=== PATIENT | male | born 1930 ===

== ENCOUNTER 2017-09-08 17:29 | Inpatient (IN) | payer MEDICAID, MEDICARE ==
[~2017-09-08] VITALS: Ht 167.6 cm; Wt 90.3 kg
--- NOTE | 2017-09-08 18:30 | NUR ---
PATIENT WAS RECEIVED FROM [facility], TRANSPORTED BY [facility], ACCOMPANIED BY 2 EMT STAFF ON A GURNEY WITH SON. NO SOB, DISTRESS OR COMPLAINTS OF PAIN AT THIS TIME. ALL NEEDS WERE ATTENDED AND ANTICIPATED, PATIENT AND SON WERE ORIENTED TO HOSPITAL UNIT. CALL LIGHT PLACED WITHIN REACH. ENCOURAGED PATIENT TO USE CALL LIGHT WHENEVER ASSISTANCE IS NEEDED. REPORT RECEIVED FROM ASH LEMUS AT [place]. PATIENT KEPT CLEAN DRY AND COMFORTABLE. RECONCILE MEDICATIONS DONE. CALLED DR. DAVENPORT AND NOTIFIED OF THE ADMISSION. WILL ENDORSE TO MOVEMENT EDUCATION SPECIALIST NURSE.
[2017-09-08] MEDS ORDERED: DILT30TA2 PO (19:01)
[2017-09-08] MEDS ORDERED: TAMS0.4C34 PO (19:08)
[2017-09-08] MEDS ORDERED: FAMO-132 PO (19:08)
[2017-09-08] MEDS ORDERED: MAG-55 PO (19:08)
[2017-09-08] MEDS ORDERED: MAGN400O6 PO (19:08)
[2017-09-08] MEDS ORDERED: ZOLP5TAB2 PO (19:08)
[2017-09-08] MEDS ORDERED: LORA1TAB PO (19:08)
--- NOTE | 2017-09-08 19:30 | NUR ---
Received patient in bed asleep. Alert and easily arousable. No c/o pain and discomfort. No acute distress noted. No labored breathing noted. No SOB. Kept clean and dry. All needs attended to promptly. Bed in low position. Call light within reach. Will continue to monitor.
[2017-09-08] MEDS ORDERED: LOSA1TAB36 PO (19:41)
[2017-09-08 20:00] VITALS: BP 145/86
[2017-09-08] MEDS ORDERED: INSULIN REGULAR, HUMAN 300 UNITS/3 ML VIAL SQ PRN ×2 (20:00→20:15)
[2017-09-08] MEDS ORDERED: ZOLPIDEM 5 MG TABLET PO PRN (20:00)
[2017-09-08] MEDS ORDERED: MAGNESIUM HYDROXIDE 30 ML LIQUID UDC PO SCH (20:00)
[2017-09-08] MEDS ORDERED: DEXTROSE 50% 50 ML DISP.SYRIN IV PRN ×2 (20:00→20:15)
[2017-09-08] MEDS ORDERED: INSULIN REGULAR, HUMAN 300 UNIT/3 ML VIAL SQ PRN (20:00)
--- NOTE | 2017-09-08 20:00 | NUR ---
Son and [id number] at bedside at this time. Patient is awake and verbally responsive. Welsh speaking only. Son and [id number] provided me with history for patient.
[2017-09-08] MEDS ORDERED: BLOOD SUGAR DIAGNOSTIC 1 EACH STRIP VI SCH (21:00)
[2017-09-08] MEDS: TAMSULOSIN HCL 0.4 MG CAP.SR.24H PO SCH (21:08)
[2017-09-08] MEDS: DILTIAZEM HCL 30 MG TABLET PO SCH (21:08)
[2017-09-08] MEDS: FAMOTIDINE 20 MG TABLET PO SCH (21:08)
--- NOTE | 2017-09-08 21:08 | NUR ---
Family still at bedside. 2100 PO medications given to patient. Blood sugar check done with result of 135. Family made aware and refused 2 units of insulin. Per family, patient does not need insulin and only started Blood sugar checks while at [place] and never needed it before. Explained risks and benefits to family and still strongly refused insulin. Patient is in no acute distress. No s/s of hyperglycemia. All needs attended to promptly. Call light within reach. Will continue to monitor.
[2017-09-08] MEDS: BLOOD SUGAR DIAGNOSTIC 1 EACH STRIP VI SCH (21:20)
--- NOTE | 2017-09-09 06:17 | NUR ---
Patient slept comfortably throughout the night. No c/o pain and discomfort. No acute distress. No SOB. Kept clean and dry. Assisted to bathroom x1 with 2 person assist last night. Pt. also used bedside commode with assistance. All needs attended to promptly. Call light within reach. Will continue to monitor.
[2017-09-09] MEDS: BLOOD SUGAR DIAGNOSTIC 1 EACH STRIP VI SCH ×4 (06:32→20:50)
[2017-09-09 07:05] VITALS: BP 135/89
[2017-09-09] MEDS: DILTIAZEM HCL 30 MG TABLET PO SCH ×4 (09:13→20:52)
[2017-09-09] MEDS: FAMOTIDINE 20 MG TABLET PO SCH ×2 (09:13→19:58)
[2017-09-09] MEDS ORDERED: MAG HYDROX/AL HYDROX/SIMETH 30 ML LIQUID UDC PO PRN (16:00)
--- NOTE | 2017-09-09 19:45 | NUR ---
Received pt sitting on a wheelchair. Family at bedside during this time. No acute distress noted. No complaints of pain or discomfort. No SOB noted. Kept clean, dry and comfortable. Call light placed within reach. All needs anticipated. Will continue to monitor.
[2017-09-09] MEDS: TAMSULOSIN HCL 0.4 MG CAP.SR.24H PO SCH (19:59)
[2017-09-09] MEDS ORDERED: MAGNESIUM HYDROXIDE 30 ML LIQUID UDC PO PRN (21:00)
--- NOTE | 2017-09-09 21:00 | NUR ---
Family still at bedside. Due meds given as ordered and well tolerated. Accu check done, 161 mg/dl. Family refused insulin coverage, stated that the pt does not need insulin. Explained risk and benefits, family still refused. No signs/symptoms of hyperglycemia noted. Call light within reach. Safety and fall precautions observed and maintained. Bed alarm on. Will continue to monitor.
[2017-09-09 21:05] VITALS: BP 157/92
--- NOTE | 2017-09-10 05:33 | NUR ---
Pt slept well. No acute distress noted. Denies pain. Ambulates to the bathroom with assistance. Frequently checked for safety. Bed alarm on. Call light within reach. All needs anticipated.
[2017-09-10] MEDS: BLOOD SUGAR DIAGNOSTIC 1 EACH STRIP VI SCH ×4 (06:45→20:56)
--- NOTE | 2017-09-10 08:00 | NUR ---
Patient awake, alert, verbally responsive, not in any form of acute distress. He denies any pain or discomfort at this time. Noted getting out of bed unassisted. Call light placed within reach. Reminded to use call light for assistance. Bed alarm on. Attended to his needs.
[2017-09-10 08:43] VITALS: BP 133/73
[2017-09-10] MEDS: DILTIAZEM HCL 30 MG TABLET PO SCH ×4 (09:00→20:40)
[2017-09-10] MEDS: FAMOTIDINE 20 MG TABLET PO SCH ×2 (09:00→20:40)
--- NOTE | 2017-09-10 09:47 | NUR ---
Called for [employer] sign language interpreter [id number] help with medication administration but patient refused. Explained risks and benefits but still patient refused and that per sign language interpreter patient sounds confused. Called son Real but didn't supervisor opening and picking so left a message. Awaiting for his call back.
--- NOTE | 2017-09-10 11:50 | NUR ---
Patient refused blood sugar check. Called son to convince patient but patient still refused.
--- NOTE | 2017-09-10 13:20 | NUR ---
Dr. Duran came to see patient. Notified MD regarding patient's refusal of medications and blood sugar check as well as family refusing insulin coverage. MD stated will check into that, no new order at this time. Informed him that patient is confused, tries to get out of bed unassisted and has tendency to be combative but didn't order anything.
--- NOTE | 2017-09-10 15:10 | NUR ---
INTERDISCIPLINARY TEAM CONFERENCE
--- NOTE | 2017-09-10 19:54 | NUR ---
Received patient sitting up in bed eating. Sitter at bed side and assisting patient. Alert and verbally responsive. Citizen Of [place] speaking. No c/o pain and discomfort at this time. No facial grimacing. No acute distress. No SOB. Kept clean and dry. All needs attended to promptly. Call light within reach. Will continue to monitor.
[2017-09-10 20:16] VITALS: BP 142/95
[2017-09-10] MEDS: TAMSULOSIN HCL 0.4 MG CAP.SR.24H PO SCH (20:40)
[2017-09-10] MEDS: LORAZEPAM 1 MG TABLET PO PRN (20:40)
--- NOTE | 2017-09-11 06:09 | NUR ---
Patient slept comfortably throughout the night. Sitter at bedside at all times. Still noted with episodes of trying to get OOB intermittently throughout the night. Redirected patient. No c/o pain and discomfort. No acute distress. No SOB. Kept clean and dry. All needs attended to promptly. Call light within' reach. Will continue to monitor.
[2017-09-11] MEDS: BLOOD SUGAR DIAGNOSTIC 1 EACH STRIP VI SCH ×4 (06:40→20:55)
--- NOTE | 2017-09-11 07:05 | NUR ---
Received patient asleep, lying on bed with head of bed elevated above 15 degree angle with no SOB, facial grimace or moaning, easily aroused. 1:1 sitter at bedside for close monitoring and safety. Call light within reach. Will continue to monitor.
[2017-09-11 07:29] LABS: BASOPHILS # (AUTO) 0.1 K/uL (0.0-8.0); BASOPHILS % (AUTO) 0.9 % (0.0-2.0); EOSINOPHILS # (AUTO) 0.3 K/uL (0.0-0.7); EOSINOPHILS % (AUTO) 3.6 % (0.0-7.0); HEMOGLOBIN 13.1 g/dL (12.5-16.3); LYMPHOCYTES # (AUTO) 1.8 K/uL (20.0-40.0); LYMPHOCYTES % (AUTO) 24.7 % (20.5-51.5); MEAN CORPUSCULAR HEMOGLOBIN 30.9 uug (23.8-33.4); MEAN CORPUSCULAR HGB CONC 34 g/dL (32.5-36.3); MEAN CORPUSCULAR VOLUME 89.8 fL (73.0-96.2); MONOCYTES # (AUTO) 0.6 K/uL (2.0-10.0); MONOCYTES % (AUTO) 7.8 % (0.0-11.0); NEUTROPHILS # (AUTO) 4.7 K/uL (1.8-8.9); PLATELET COUNT (AUTO) 281 K/uL (152-348); RED BLOOD CELL COUNT(AUTO) 4.24 MIL/uL (4.06-5.63); WHITE BLOOD COUNT (AUTO) 7.5 K/uL (3.6-10.2)
[2017-09-11 07:41] LABS: CARBON DIOXIDE 31 mmol/L (21-32); CHLORIDE 104 mmol/L (98-107); CREATININE 1.3 mg/dL (0.6-1.3); GLUCOSE 102 mg/dL (74-106); POTASSIUM 3.8 mmol/L (3.5-5.1); UREA NITROGEN, BLOOD 24 mg/dL (7-18)
[2017-09-11 08:00] VITALS: BP 157/91
[2017-09-11] MEDS: FAMOTIDINE 20 MG TABLET PO SCH ×2 (08:41→20:54)
[2017-09-11] MEDS: LOSARTAN POTASSIUM 50 MG TABLET PO SCH (08:42)
[2017-09-11] MEDS: DILTIAZEM HCL 30 MG TABLET PO SCH ×4 (08:42→20:54)
--- NOTE | 2017-09-11 11:40 | NUR ---
PATIENT IS SCHEDULED FOR ACCU CHECK BEFORE LUNCH ORDERED. PATIENT AWAKE, SITTING ON HIS CHAIR WITH HIS 1:1 SITTER AT BEDSIDE. PATIENT REFUSED TO DO ACCU CHECK, CALLED SHEA, PATIENT'S SON, AND NOTIFIED SON SPOKE WITH THE PATIENT ON THE PHONE STILL PATIENT REFUSED. SON ON THE PHONE NOTIFIED THAT PATIENT IS REFUSING ACCU CHECK.
--- NOTE | 2017-09-11 20:00 | NUR ---
Received patient sitting up in bed. Alert and verbally responsive. Sierra Leonean speaking. Sitter at bedside. Denies any pain and discomfort. No acute distress. No SOB. Assisted to the bathroom when needed. Kept clean and dry. All needs attended to promptly. Call light within reach. Will continue to monitor.
[2017-09-11 20:30] VITALS: BP 146/95
[2017-09-11] MEDS: TAMSULOSIN HCL 0.4 MG CAP.SR.24H PO SCH (20:54)
--- NOTE | 2017-09-12 06:30 | NUR ---
Patient slept comfortably throughout the night. No c/o pain and discomfort. No acute distress. No SOB. Kept clean and dry. Accucheck done with BS of 114. No coverage needed. Sister at bedside. All needs attended to promptly. Call light within reach. Will continue to monitor.
[2017-09-12] MEDS: BLOOD SUGAR DIAGNOSTIC 1 EACH STRIP VI SCH ×4 (06:42→21:00)
[2017-09-12] MEDS: DILTIAZEM HCL 30 MG TABLET PO SCH ×4 (08:37→21:01)
[2017-09-12] MEDS: LOSARTAN POTASSIUM 50 MG TABLET PO SCH (08:37)
[2017-09-12] MEDS: FAMOTIDINE 20 MG TABLET PO SCH ×2 (08:38→21:01)
--- NOTE | 2017-09-12 16:59 | NUR ---
NURSING NOTE REFUSING TO HAVE HIS BLOOD SUGAR TAKEN BEFORE DINNER. ALSO REFUSE THE LUNCH ACCU CHECK WELL. ALSO REFUSING TO TAKE HIS MEDS. THROUGHOUT THE DAY
--- NOTE | 2017-09-12 17:47 | NUR ---
DAILY NOTE COMBATIVE WITH CARE FIGHTING WITH MANAGER CHILD
--- NOTE | 2017-09-12 19:45 | NUR ---
Received pt in bed, awake and watching television. Sitter at bedside. No acute distress noted. Denies pain or discomfort at this time. All safety measures and fall precautions maintained. Call light within reach. Will continue to monitor.
[2017-09-12] MEDS: TAMSULOSIN HCL 0.4 MG CAP.SR.24H PO SCH (21:01)
--- NOTE | 2017-09-12 21:04 | NUR ---
Blood sugar taken, noted to be 139. Pt and family refused insulin coverage. Explained risks and benefits. Offered x 3. Both family members stated "insulin is too strong. I want him to only take the pills for blood sugar." No acute distress noted. All due medications this evening given as ordered. Well tolerated. Will continue to monitor.
[2017-09-12] MEDS: LORAZEPAM 1 MG TABLET PO PRN (22:05)
--- NOTE | 2017-09-13 06:30 | NUR ---
Pt slept comfortably throughout the evening. No acute distress noted. Denies pain or discomfort. All due medications given as ordered by MD. Well tolerated. Kept clean and dry. All needs met promptly. All safety measures and fall precautions maintained. Call light within reach. Will continue to monitor. Addendum: 09/13/17 at 0630 by Graham Drew RN Sitter at bedside.
--- NOTE | 2017-09-13 07:00 | NUR ---
Received patient asleep, lying on bed on a semi- melchor's position with no SOB distress or discomforts. Easily aroused. With 1:1 sitter at bedside. call light within reach. Will continue to monitor.
[2017-09-13] MEDS: BLOOD SUGAR DIAGNOSTIC 1 EACH STRIP VI SCH ×4 (07:01→20:15)
[2017-09-13 08:00] VITALS: BP 145/89
[2017-09-13] MEDS: LOSARTAN POTASSIUM 50 MG TABLET PO SCH (09:47)
[2017-09-13] MEDS: DILTIAZEM HCL 30 MG TABLET PO SCH ×4 (09:47→20:15)
[2017-09-13] MEDS: FAMOTIDINE 20 MG TABLET PO SCH ×2 (09:48→20:15)
--- NOTE | 2017-09-13 11:30 | NUR ---
BLOOD SUGAR WAS TAKEN WITH RESULT OF 247 MG/DL. CALLED PATIENT'S SON AND INFORMED OF THE BLOOD SUGAR LEVEL PER PATIENT'S SON IT IS OKAY TO ADMINISTER THE 6 UNITS OF INSULIN PER SLIDING SCALE ORDER.
[2017-09-13] MEDS: INSULIN REGULAR, HUMAN 300 UNIT/3 ML VIAL SQ PRN ×2 (11:51→20:15)
--- NOTE | 2017-09-13 13:24 | NUR ---
PATIENT NOTED ASLEEP, LYING ON BED WITH HIS 1:1 SITTER AT BEDSIDE. EASILY AROUSED WITH NO SOB, DISTRESS OR ANY DISCOMFORTS AT THIS TIME. CALL LIGHT PLACED WITH REACH. WILL CONTINUE TO MONITOR.
--- NOTE | 2017-09-13 16:19 | NUR ---
PATIENT AWAKE, ALERT SITTING ON THE CHAIR AT THE BEDSIDE WITH NO SOB, DISTRESS OR DISCOMFORTS NOTED. SCHEDULED FOR ACCU CHECK BUT PATIENT REFUSED. EXPLAINED RISKS AND BENEFITS STILL PATIENT REFUSED. ASSESSED PATIENT, NOTED NO SIGNS AND SYMPTOMS OF HYPOGLYCEMIA OR HYPERGLYCEMIA. TRIED CALLING PATIENT'S SON BUT DID NOT ANSWER. LEFT MESSAGE TO CALL THE HOSPITAL TO INFORM. WILL CONTINUE TO MONITOR.
--- NOTE | 2017-09-13 16:26 | NUR ---
CALLED DR. POLANCO AND INFORMED OF PATIENT'S REFUSAL TO DO BLOOD SUGAR CHECK SCHEDULED FOR 1629.
--- NOTE | 2017-09-13 19:12 | NUR ---
Patient awake, lying on bed with no SOB distress or discomforts at this time with 1:1 sitter at bedside, all needs were attended and anticipated. call light within reach. Will endorse to incoming shift
[2017-09-13 19:44] VITALS: BP 132/84
--- NOTE | 2017-09-13 19:45 | NUR ---
RECEIVED PATIENT AWAKE IN BED WITH VISITOR AT BEDSIDE. PATIENT IS LAO SPEAKING ONLY. PER PATIENTS SON, PATIENT IS A/O X3. PATIENT IS AWARE OF NAME, PLACE AND TIME. PATIENT IS CONVERSING WITH SON. PATIENT DENIES ANY PAIN OR DISCOMFORT. NO RESP. DISTRESS NOTED. VS WNL. ON RA. CALL LIGHT IN REACH. ALL NEEDS ATTENDED. WILL CONTINUE TO MONITOR.
[2017-09-13] MEDS: TAMSULOSIN HCL 0.4 MG CAP.SR.24H PO SCH (20:15)
--- NOTE | 2017-09-13 20:17 | NUR ---
PATIENT AWAKE IN BED, SON AT BEDSIDE. PATIENT COOPERATIVE WITH HS ACC-CHECK AND TAKING HS MEDICATIONS. BS 134. NO INSULIN GIVEN TONIGHT. PATIENT DID NOT EAT DINNER. SNACKS AND FOOD OFFERED, BUT PATIENT REFUSED TO EAT AT THIS TIME. HEALTHCARE ADMINISTRATION INTERNSHIP AWARE THAT PATIENT DID NOT RECEIVE ANY INSULIN TONIGHT. BED ALARM ON. CALL LIGHT IN REACH. ALL NEEDS ATTENDED. WILL CONTINUE TO MONITOR.
--- NOTE | 2017-09-14 06:18 | NUR ---
PATIENT ASLEEP IN BED WITH SITTER AT BEDSIDE. PATIENT SLEPT WELL THROUGHOUT THE NIGHT. NO S/S OF PAIN OR DISCOMFORT. NO RESP. DISTRESS NOTED. BED ALARM ON. CALL LIGHT IN REACH. ALL NEEDS ATTENDED. WILL CONTINUE TO MONITOR.
[2017-09-14] MEDS: BLOOD SUGAR DIAGNOSTIC 1 EACH STRIP VI SCH ×4 (06:45→20:38)
--- NOTE | 2017-09-14 07:00 | NUR ---
Received patient asleep, lying on bed on a semi- melchor's position, easily aroused with his 1:1 sitter at bedside with no SOB, distress or any display of discomforts at this time. Call light placed within reach. Will continue to monitor patient.
[2017-09-14 08:23] VITALS: BP 154/83
[2017-09-14] MEDS: FAMOTIDINE 20 MG TABLET PO SCH ×2 (08:46→20:42)
[2017-09-14] MEDS: LOSARTAN POTASSIUM 50 MG TABLET PO SCH (08:46)
[2017-09-14] MEDS: DILTIAZEM HCL 30 MG TABLET PO SCH ×4 (08:46→20:42)
--- NOTE | 2017-09-14 09:59 | NUR ---
Patient noted asleep, lying on his bed on a semi- melchor's position with no SOB, distress or discomforts at this time. Call light within reach. Easily aroused. Will continue to closely monitor.
--- NOTE | 2017-09-14 11:40 | NUR ---
PATIENT AWAKE, LYING ON HIS BED ON A SEMI- GARVIN'S POSITION WITH BED ALARM ON FOR SAFETY. CALL LIGHT WITHIN REACH. PATIENT IS SCHEDULED TO CHECK HIS BLOOD SUGAR, BUT PATIENT BECAME VERY AGGRESSIVE, SAT ON HIS BED, GRABBED HIS WALKER AT HIS BEDSIDE AND LIFTED THE WALKER ABOUT TO HIT THE NURSE. TRIED TO CALM THE PATIENT BUT PATIENT WAS VERY AGGRESSIVE. REFUSED TO DO HIS BLOOD SUGAR CHECK. DR. POLANCO PRESENT AT THE NURSE'S STATION, NOTIFIED OF PATIENT'S REFUSAL TO CHECK HIS BLOOD SUGAR AND HIS BEHAVIOR. DR. POLANCO ORDERED PSYCHIATRIC CONSULT FOR FURTHER EVALUATION OF PATIENT'S BEHAVIOR. ORDERS NOTED AND CARRIED OUT.
--- NOTE | 2017-09-14 12:19 | NUR ---
CALLED PATIENT'S SON, JOSE ESCAMILLA TO INFORM REGARDING THE PSYCHIATRIC CONSULT ORDERED BY DR. POLANCO BUT DID NOT ANSWER THE CALL. LEFT MESSAGE TO CALL BACK THE UNIT.
--- NOTE | 2017-09-14 12:20 | NUR ---
CALLED DR. POWELL (PSYCHIATRIST) REGARDING THE ORDER OF MD SHERRY MCDONOUGH ACKNOWLEDGED THE ORDER.
[2017-09-14] MEDS: LORAZEPAM 1 MG TABLET PO PRN (13:26)
--- NOTE | 2017-09-14 15:26 | NUR ---
PATIENT NOTED AMBULATING WITH PT WITHOUT DIFFICULTY NO SOB OR DISCOMFORTS NOTED AT THIS TIME. WILL CONTINUE TO MONITOR.
--- NOTE | 2017-09-14 16:14 | NUR ---
PATIENT IS SCHEDULED FOR HIS BLOOD SUGAR CHECK, PATIENT REFUSED. EXPLAINED TO PATIENT THE RISKS AND BENEFITS OF THE BLOOD SUGAR CHECK, BUT STILL PATIENT REFUSED. PATIENT STARTED SCREAMING AND "NO! NO!" NO SIGNS AND SYMPTOMS OF HYPOGLYCEMIA OR HYPERGLYCEMIA AT THIS TIME. MD AWARE OF PATIENT'S BEHAVIOR.
--- NOTE | 2017-09-14 17:21 | NUR ---
PATIENT IS SCHEDULED FOR HIS DILTIAZEM BUT PATIENT REFUSED TO HAVE HIS BLOOD PRESSURE CHECK AND TO TAKE THE MEDICATION. EXPLAINED TO PATIENT BUT STILL PATIENT REFUSED. STILL AWAITING FOR PATIENT'S SON CALL BACK. MD MADE AWARE. NO SOB, DISTRESS OR DISPLAY OF ANY DISCOMFORTS AT THIS TIME.
--- NOTE | 2017-09-14 18:24 | NUR ---
PATIENT ASLEEP, LYING ON BED WITH NO SOB, DISTRESS OR DISCOMFORTS. KEPT PATIENT CLEAN AND COMFORTABLE THROUGHOUT THE DAY. EASILY AROUSED. CALL LIGHT PLACED WITHIN REACH. WILL CONTINUE TO MONITOR.
--- NOTE | 2017-09-14 20:00 | NUR ---
RECEIVED PATIENT AWAKE IN BED WITH 1:1 SITTER AT BEDSIDE. PATIENT IS ALERT TO SELF. VIETNAMESE SPEAKING. PATIENT GETS EASILY AGITATED AT TIMES. NEEDS FREQUENT REDIRECTION. NO S/S OF PAIN OR DISCOMFORT. NO RESP. DISTRESS NOTED. PROVIDED SAFE AND THERAPEUTIC ENVIRONMENT. BED ALARM ON. CALL LIGHT IN REACH. ALL NEEDS ATTENDED. WILL CONTINUE TO MONITOR.
[2017-09-14 20:11] VITALS: BP 135/91
[2017-09-14] MEDS: TAMSULOSIN HCL 0.4 MG CAP.SR.24H PO SCH (20:42)
--- NOTE | 2017-09-14 20:45 | NUR ---
PATIENT AWAKE IN BED WITH FAMILY AT BEDSIDE. PATIENT SON DOES NOT WANT HIS FATHER TO HAVE ANY MORE ACCU-CHECKS DONE. PER THE SON HE VERBALIZED THAT HIS DAD DOES NOT WANT TO BE POKED ANYMORE EITHER. NOTIFIED PUMPER GAUGER APPRENTICE NOTIFIED. PATIENT COOPERATIVE WITH TAKING HS PO PILLS. SITTER AT BEDSIDE FOR SAFETY. BED ALARM ON. ALL NEEDS ATTENDED.
[2017-09-15] MEDS: BLOOD SUGAR DIAGNOSTIC 1 EACH STRIP VI SCH ×2 (06:24→11:30)
--- NOTE | 2017-09-15 06:24 | NUR ---
PATIENT ASLEEP IN BED. SLEPT WELL. SITTER AT BEDSIDE. ACCU-CHECK NOT DONE THIS AM, PATIENTS SON REFUSED FOR HIS DAD TO HAVE BLOOD SUGAR TAKEN. ALIGNER BARREL AND RECEIVER AWARE. BED ALARM ON. CALL LIGHT IN REACH. ALL NEEDS ATTENDED.
[2017-09-15 08:00] VITALS: BP 145/70
[2017-09-15] MEDS: LOSARTAN POTASSIUM 50 MG TABLET PO SCH ×2 (09:00→09:24)
[2017-09-15] MEDS: FAMOTIDINE 20 MG TABLET PO SCH ×3 (09:00→21:08)
[2017-09-15] MEDS: DILTIAZEM HCL 30 MG TABLET PO SCH ×5 (09:00→21:08)
--- NOTE | 2017-09-15 09:49 | NUR ---
With the help of [employer] wood experimental mechanic for [place]ian language, patient educated on medications due at this time, patient adamantly refused to take his morning medications stating "I don't need them" as stated by electroencephalogram technologist.".
--- NOTE | 2017-09-15 15:30 | NUR ---
Dr. Duran rounding in the unit and he was notified that patient is refusing to drink any of his scheduled medication. Orders to dcd. accucheck, and continue to monitor.
[2017-09-15 20:07] VITALS: BP 140/95
--- NOTE | 2017-09-15 20:15 | NUR ---
Received patient on bed on a semi melchor's position, awake and with family at bedside. Family brought food for the patient for his dinner. Patient is also with sitter at bedside. Talked to the family about patient's refusal to take all his scheduled meds. this AM. Per son, he will convince his father to take his medications tonight. Will continue to monitor the patient.
[2017-09-15] MEDS: TAMSULOSIN HCL 0.4 MG CAP.SR.24H PO SCH (21:08)
[2017-09-15] MEDS: LORAZEPAM 1 MG TABLET PO PRN (21:25)
--- NOTE | 2017-09-16 07:49 | NUR ---
Patient was able to sleep throughout the night. Sitter at bedside. Vital signs are WNL. No signs of distress. Will endorse to am shift nurse.
[2017-09-16] MEDS: FAMOTIDINE 20 MG TABLET PO SCH ×2 (08:48→20:44)
[2017-09-16] MEDS: DILTIAZEM HCL 30 MG TABLET PO SCH ×4 (08:49→20:47)
[2017-09-16] MEDS: LOSARTAN POTASSIUM 50 MG TABLET PO SCH (08:49)
--- NOTE | 2017-09-16 09:52 | NUR ---
pt seen on rounding. pt continues to be confused and refused medications. pt reinforced to take the medications by sitter. pt took bp meds for elevated blood pressure. pt continues to be weak on gait. pt assisted to the bathroom. all other vitals stable. no new injuries noted. no falls noted. will continue to monitor.
--- NOTE | 2017-09-16 11:00 | NUR ---
pt seen by dr burgess. md burgess contacted another psychiatry consult because dr burgess does not speak sami. instructed to be paged if the psychiatry consult does not do the consult. will notify pee if does not do the consult.
--- NOTE | 2017-09-16 14:40 | NUR ---
CONTACTED dr kellogg for psych consult to verify what time hes coming. pt will come today but states he does not know what time.
--- NOTE | 2017-09-16 16:20 | NUR ---
Bezel Cutter: SW met with patient per RN request for social work consult. SW attempted to assess patient using fibreglass laminator service (#[id number]). Patient is Faroese speaking. Per fibreglass laminator, patient was having difficulty understanding her. SW was unable to conduct interview to due patient's inability to communicate with both the fibreglass laminator and the SW. SW attempted to call patient's son at both numbers listed in patient's chart [[phone] and [phone]], but there was no answer. Upon evaluation, patient appeared confused and disoriented. SW suggested a psych consult to RN. Per RN, Dr. Yoder will meet with the patient later today.
--- NOTE | 2017-09-16 18:00 | NUR ---
pt met with dr kellogg. dr kellogg states that he does not speak greenlandic. pt will be seen by dr winkler. dr kellogg called md winkler to have pt be seen tomorrow. states that rn should call tomorrow
[2017-09-16 19:29] VITALS: BP 133/77
--- NOTE | 2017-09-16 20:00 | NUR ---
Patient seen with family at bedside. 1:1 Sitter provided for safety. Vital signs taken, stable condition. Family asking when patient will be discharged. Informed family patient okay for DC on 09/19/17. Denies of pain. Patient's vital signs WNL. Breathing even and non labored. Will continue to monitor.
[2017-09-16] MEDS: TAMSULOSIN HCL 0.4 MG CAP.SR.24H PO SCH (20:44)
[2017-09-16] MEDS: LORAZEPAM 1 MG TABLET PO PRN (21:34)
[2017-09-17 07:19] LABS: THYROID STIMULATING HORMONE 1.062 mIU/mL (0.358-3.740)
[2017-09-17 07:20] LABS: BASOPHILS # (AUTO) 0.1 K/uL (0.0-8.0); BASOPHILS % (AUTO) 0.9 % (0.0-2.0); EOSINOPHILS # (AUTO) 0.3 K/uL (0.0-0.7); EOSINOPHILS % (AUTO) 3.6 % (0.0-7.0); HEMATOCRIT 39.3 % (36.7-47.1); HEMOGLOBIN 13.5 g/dL (12.5-16.3); LYMPHOCYTES # (AUTO) 1.9 K/uL (20.0-40.0); LYMPHOCYTES % (AUTO) 25.3 % (20.5-51.5); MEAN CORPUSCULAR HGB CONC 34 g/dL (32.5-36.3); MEAN CORPUSCULAR VOLUME 90.1 fL (73.0-96.2); MONOCYTES # (AUTO) 0.7 K/uL (2.0-10.0); MONOCYTES % (AUTO) 8.9 % (0.0-11.0); NEUTROPHILS # (AUTO) 4.6 K/uL (1.8-8.9); NEUTROPHILS % (AUTO) 61.3 % (38.5-71.5); PLATELET COUNT (AUTO) 265 K/uL (152-348); RED BLOOD CELL COUNT(AUTO) 4.37 MIL/uL (4.06-5.63); WHITE BLOOD COUNT (AUTO) 7.4 K/uL (3.6-10.2)
[2017-09-17 08:29] VITALS: BP 166/99
[2017-09-17] MEDS: FAMOTIDINE 20 MG TABLET PO SCH ×2 (08:31→21:02)
[2017-09-17] MEDS: LOSARTAN POTASSIUM 50 MG TABLET PO SCH (08:31)
[2017-09-17] MEDS: DILTIAZEM HCL 30 MG TABLET PO SCH ×2 (08:31→12:27)
[2017-09-17 08:39] LABS: ALKALINE PHOSPHATASE 31 U/L (50-136); ASPARTATE AMINOTRANSFERASE 17 U/L (15-37); BILIRUBIN,TOTAL 0.3 mg/dL (0.2-1.0); CARBON DIOXIDE 32 mmol/L (21-32); CHLORIDE 108 mmol/L (98-107); CHOLESTEROL 174 mg/dL (<200); CREATININE 1.5 mg/dL (0.6-1.3); GLUCOSE 115 mg/dL (74-106); HDL CHOLESTEROL 36 mg/dL (40-60); PHOSPHOROUS 3.8 mg/dL (2.5-4.9); TOTAL PROTEIN, SERUM 7.2 g/dL (6.4-8.2); TRIGLYCERIDES 86 MG/DL (30-150)
[2017-09-17 09:07] LABS: ALANINE AMINOTRANSFERASE 24 U/L (16-63); MAGNESIUM 1.9 mg/dL (1.8-2.4); UREA NITROGEN, BLOOD 33 mg/dL (7-18)
--- NOTE | 2017-09-17 09:30 | NUR ---
pt seen on rounding. pt continues to be confused. pt continues to have elevated blood pressure. pt given meds. pt continues to refuse meds. pt took meds after given time. pt walked around the unit with assistance and a walker. will continue to monitor.
--- NOTE | 2017-09-17 13:54 | NUR ---
PT SEEN BY DR BAUER PSYCHIATRY. states that patient is very confused and showed signs of advanced dementia. pt does not know why he is here and what he is doing. pt raised his voice earlier when giving meds. pt eventually took the bp meds for elevated bp. states that family wouldnt want him to get seroquel so just give him ativan for signs of agitation. pt will be monitored.
--- NOTE | 2017-09-17 14:02 | NUR ---
INTERDISCIPLINARY TEAM SUMMARY
[2017-09-17] MEDS ORDERED: hydrALAZINE HCL 25 MG TABLET PO PRN (16:30)
--- NOTE | 2017-09-17 18:52 | NUR ---
pt has new meds ordered for htn. pt also visted by cathi. pt ordered to have xanax for agitation. pt seen by dr jones. no new orders noted. labs stable. pt still has sitter to keep watch of the patient. pt has family member wanting to go to see the health social work professor. will endorse to night nurse nurse.
[2017-09-17 19:45] VITALS: BP 146/83
--- NOTE | 2017-09-17 20:18 | NUR ---
pt. on bed, awake, alert and verbally responsive but in Spanish language, with 1:1 sitter for safety. Vital sign taken, WNL. pt. appeared relax non-combative compared to previous night. Informed the sitter that if needs arise to use call light. Will continue to monitor the pt.
[2017-09-17] MEDS: TAMSULOSIN HCL 0.4 MG CAP.SR.24H PO SCH (21:02)
[2017-09-17] MEDS: ATORVASTATIN 10 MG TABLET PO SCH (21:02)
[2017-09-17] MEDS: LORAZEPAM 1 MG TABLET PO PRN (21:02)
[2017-09-18 07:30] VITALS: BP 135/87
--- NOTE | 2017-09-18 07:42 | NUR ---
pt. slept the whole night after giving all his night meds. 1:1 sitter at bedside for safety. Denies pain. Safety measures provided. will endorse to AM nurse.
[2017-09-18] MEDS: DILTIAZEM HCL CD 180 MG CAP.SR.24H PO SCH (09:00)
[2017-09-18] MEDS: FAMOTIDINE 20 MG TABLET PO SCH ×3 (09:00→21:15)
--- NOTE | 2017-09-18 19:30 | NUR ---
RECEIVED PATIENT FROM DAY SHIFT NURSE. SHIFT REPORT AT BEDSIDE. PT CONFUSED. 1:1 SITTER AT BEDSIDE. FAMILY AT BEDISDE. NO SIGNS OF PAIN, SOB, OR ACUTE DISTRESS. PERTINENT ASSESSMENTS COMPLETED. CALL LIGHT PLACED WITHIN REACH OF PATIENT. WILL CONTINUE TO MONITOR PT THROUGH OUT SHIFT.
[2017-09-18 19:40] VITALS: BP 146/96
[2017-09-18] MEDS: TAMSULOSIN HCL 0.4 MG CAP.SR.24H PO SCH ×2 (21:00→21:15)
[2017-09-18] MEDS: ATORVASTATIN 10 MG TABLET PO SCH ×2 (21:00→21:14)
--- NOTE | 2017-09-18 21:30 | NUR ---
PATIENT REFUSED 2100 MEDS. CRUSHED MEDS AND PUT IN APPLE SAUCE. HOWEVER PT STILL REFUSED MEDS. WILL CONTINUE TO MONITOR PT THROUGH OUT SHIFT.
[2017-09-18] MEDS: LORAZEPAM 1 MG TABLET PO PRN (22:24)
--- NOTE | 2017-09-19 01:53 | NUR ---
PATIENT AGITATED AND TRYING TO GET OUT OF BED. REFUSING TO STAY IN BED OR COOPERATE. REFUSED PO MEDS. SAFETY MEASURES IMPLEMENTED. WILL CONTINUE TO CLOSELY MONITOR PATIENT.
--- NOTE | 2017-09-19 04:00 | NUR ---
MD KRISTINA MERCHANT CALLED WITH NEW ORDER OF ATIVAN 1MG IM Q 6H PRN. PATIENT CURRENTLY SLEEPING WITH NO SIGNS OF AGITATION. WILL CARRY OUT ORDER & CONTINUE TO MONITOR.
[2017-09-19] MEDS ORDERED: LORAZEPAM 2 MG/1 ML VIAL IM PRN (04:15)
--- NOTE | 2017-09-19 06:46 | NUR ---
PATIENT STABLE THROUGH OUT SHIFT. NO SIGNS OF PAIN, SOB, OR ACUTE DISTRESS. PATIENT EVENTUALLY SLEPT DURING THE NIGHT AFTER EPISODES OF AGITATION. 1:1 SITTER AT BEDSIDE. ALL NEEDS ATTENDED TO. MEDICATIONS ADMINISTERED ORDERED. SAFETY MEASURES IMPLEMENTED. CALL LIGHT PLACED WITHIN REACH. WILL ENDORSE TO DAY SHIFT NURSE.
[2017-09-19 07:54] VITALS: BP 140/96
[2017-09-19] MEDS: DILTIAZEM HCL CD 180 MG CAP.SR.24H PO SCH (09:00)
[2017-09-19] MEDS: FAMOTIDINE 20 MG TABLET PO SCH ×2 (09:00→21:08)
--- NOTE | 2017-09-19 11:58 | NUR ---
Rn Spine: Per request of patient's son Real [[phone]], SW provided a hospitalization verification letter for patient.
[2017-09-19] MEDS: QUETIAPINE FUMARATE 25 MG TABLET PO SCH (13:45)
--- NOTE | 2017-09-19 19:30 | NUR ---
RECEIVED PATIENT FROM DAY SHIFT NURSE. SHIFT REPORT AT BEDSIDE. PATIENT SLEEPING COMFORTABLY IN BED AT START OF SHIFT. SITTER AT BEDSIDE. NO SIGNS OF PAIN, SOB, OR ACUTE DISTRESS. PERTINENT ASSESSMENT COMPLETED. SAFETY MEASURES TO BE IMPLEMENTED. CALL LIGHT PLACED WITHIN REACH OF PATIENT. WILL CONTINUE TO MONITOR PATIENT THROUGH OUT SHIFT.
[2017-09-19 19:40] VITALS: BP 161/91
[2017-09-19] MEDS ORDERED: QUETIAPINE FUMARATE 25 MG TABLET PO SCH (21:00)
[2017-09-19] MEDS: ATORVASTATIN 10 MG TABLET PO SCH (21:08)
[2017-09-19] MEDS: TAMSULOSIN HCL 0.4 MG CAP.SR.24H PO SCH (21:08)
--- NOTE | 2017-09-20 06:41 | NUR ---
PATIENT STABLE THROUGH OUT SHIFT WITH NO SIGNS OF PAIN, ACUTE DISTRESS, OR SOB. PATIENT SLEPT INTERMITTENTLY THROUGH THE NIGHT. SITTER AT BEDSIDE. ALL MEDICATIONS ADMINISTERED ORDERED PER MD. ALL NEEDS ATTENDED TO. SAFETY MEASURES IMPLEMENTED. CALL LIGHT WITHIN REACH OF PATIENT. WILL ENDORSE TO DAY SHIFT NURSE.
[2017-09-20 07:30] VITALS: BP 156/96
--- NOTE | 2017-09-20 08:00 | NUR ---
Patient awake, verbally responsive, afebrile, not in any form of acute distress. No noted pain or discomfort. Eating breakfast independently. Sitter at bedside. Needs anticipated and met. Call light placed within reach.
[2017-09-20 08:57] VITALS: BP 156/96
[2017-09-20] MEDS: FAMOTIDINE 20 MG TABLET PO SCH (08:57)
[2017-09-20] MEDS: DILTIAZEM HCL CD 180 MG CAP.SR.24H PO SCH (08:57)
[2017-09-20] MEDS: QUETIAPINE FUMARATE 25 MG TABLET PO SCH (09:02)
--- NOTE | 2017-09-20 12:10 | NUR ---
Received a discharge order to home with home health from Dr. Mcallister. Order carried out. [id number] Kishore Jane at bedside aware.
--- NOTE | 2017-09-20 12:51 | NUR ---
12:45 Discharged patient to home, picked up by [id number] Kishore Jane via private car. Offered Flu and PNA vaccines but family refused. Explained risks and benefits but still refused. Discharge instructions including medications, follow up appointment with PCP as scheduled, fall precaution provided to Kishore with verbalized understanding. Family opted to arrange follow up appointment with their own waitangi tribunal member. All discharge papers were signed by and given to the [place]. All belongings brought home by patient. DME's brought home by son yesterday per CM. Patient remained alert, verbally responsive, not in any form of acute distress. BP 139/85, P 64, RR 18, SpO2 96% at RA, Skin intact. He denies any pain or discomfort. Assisted patient to the parking lot via wheelchair by BLACKING MACHINE OPERATOR.
== END 2017-09-20 11:45 | disposition home health service (06) ==
PROVIDERS: ADMIT Physical Medicine & Rehabilitation Pain Medicine; ATTEND Physical Medicine & Rehabilitation Pain Medicine
DX: K80.12 Calculus of gallbladder with acute and chronic cholecystitis without obstruction (principal); N17.9 Acute kidney failure, unspecified; G93.40 Encephalopathy, unspecified; D68.59 Other primary thrombophilia; E11.22 Type 2 diabetes mellitus with diabetic chronic kidney disease; I13.0 Hypertensive heart and chronic kidney disease with heart failure and stage 1 through stage 4 chronic kidney disease, or unspecified chronic kidney disease; I50.9 Heart failure, unspecified; I48.91 Unspecified atrial fibrillation; F03.90 Unspecified dementia, unspecified severity, without behavioral disturbance, psychotic disturbance, mood disturbance, and anxiety; I25.2 Old myocardial infarction; I25.10 Atherosclerotic heart disease of native coronary artery without angina pectoris; M19.90 Unspecified osteoarthritis, unspecified site; N18.9 Chronic kidney disease, unspecified; N40.0 Benign prostatic hyperplasia without lower urinary tract symptoms; Z91.81 History of falling; Z53.20 Procedure and treatment not carried out because of patient's decision for unspecified reasons; R53.1 Weakness; R53.81 Other malaise; R26.9 Unspecified abnormalities of gait and mobility; E66.9 Obesity, unspecified; Z68.32 Body mass index [BMI] 32.0-32.9, adult; E78.5 Hyperlipidemia, unspecified; F09 Unspecified mental disorder due to known physiological condition; F41.9 Anxiety disorder, unspecified; G89.29 Other chronic pain; Z91.14 Patient's other noncompliance with medication regimen
CPT/HCPCS: 36415; 70030-TC; 82306; 83735; 84100; 84443; 85025; 92507; 92523; 97110; 97112; 97116; 97530; 97535; A4663; J1815